=== PATIENT | male | born 1950 | race Caucasian/White ===

== ENCOUNTER 2023-11-06 10:34 | Outpatient (AMB) | payer MEDICARE, SELFPAY ==
--- NOTE | 2023-11-06 10:36 | A.OFFVIS_ITS ---
Intake Vital Signs 11/06/23 10:41 Height 5 ft 11.5 in Weight 136 lb BMI 18.7 BP 138/70 Blood Pressure Location Lt brachial Position Sitting Respiration 14 Pulse 78 Pulse Source Pulse Oximeter Pulse Oximetry (%) 99 Oxygen Delivery Method Room Air Intake Visit Reasons: Knee, Shoulder, Hands Numbness Allergies No Known Allergies Allergy (Verified 11/06/23 10:37) HPI Knee, Shoulder, Hands Numbness HPI Details 73-year-old male who presents today to t he office for an evaluation of knee, shoulder, hands numbness. He has a history of left arm numbness and paresthesia. He has paresthesia along the lateral left chest wall and up to the armpit. He reports wrist pain and has numbness and loss of sensation in his fingers. He woke up one day in 2021 and noticed numbness in his arm, which did not resolve. He also started experiencing chest pain and shoulder pain. He was seen in the ER, underwent a bunch of tests, and was concluded to have neuropathy. He was still working, but his pain kept w orsening. He had had two injections in the past. He has no significant pain or stiffness in his neck region. He is unable to make a fist. He states that he has lost about 50% of the of the functionality of his hands. He has been dropping things constantly. He also has chronic pain in his hips, low back, knees, and shoulders. He states that his pain depends on the day. He reports back and knee pain when standing or walking. He is able to sit down for prolonged periods of time without pain. He reports back and knee pain when standing or walking. He has to take a rest while cleaning his dishes. He reports muscle cramping in his lower extremities that is worse when lifting the leg, walking, or standing. He denies having numbness or paresthesia. He walks a round trip from his home to a grocery store and back. He is using a walker. He uses the grocery store cart as a walker. He has not attended physical therapy for neck or back pain. He has not done a nerve conduction study in the past. He never had any back surgery but had had hip surgery in the past. 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 He has not used gabapentin since 2021. Review of Systems Const All systems reviewed & are unremarkable except as noted in HPI and below Physical Exam Vital Signs: Last Vital Signs Pulse 78 11/06/23 10:41 Resp 14 11/06/23 10:41 BP 138/70 11/06/23 10:41 Pulse Ox 99 11/06/23 10:41 Oxygen Delivery Method Room Air 11/06/23 10:41 BMI result Body Mass Index 18.7 General: Appears afebrile. Alert and oriented. Mood and affect appropriate. Follows and participates in conversation appropriately. Respiratory effort is unlabored. Able to transition from sit to stand unassisted. Ambulates with bilaterally normal heel strike and toe off. Neck ROM is maintained from cervical extension, which is slightly uncomfortable side to side, and lateral bending does not reproduce symptoms other than crunching in the neck. Lumbar extension is severely limited. He is unable to extend his lumbar spine. Results Reviewed Results Reviewed: 06/27/2020: MR - SHOULDER RIGHT Findings: Rotator cuff: There is a full-thickness tear in the supraspinatus, which is retracted medially by up to 2.4 cm. Remaining distal supraspinatus tendon stump is thickened and increased in signal. There is insertional tendinopathy of infraspinatus. The teres minor and subscapularis tendons are intact. There is normal muscle bulk. Glenoid labrum and biceps tendon: There is degeneration in the superior labrum. There is a tear of the inferior and posterior labrum. There is edema in the humeral attachment of the anterior glenohumeral ligament. The biceps tendon is in the groove, though there is thickening and increased signal of the intra-articular portion. AC joint: There is moderate acromioclavicular degenerative change with bony proliferation and subchondral cyst formation. Articular cartilage: Mild chondral thinning is seen superiorly on the humeral head and centrally in the glenoid. Bone: There is mild bone marrow edema in the posterior superior humeral head. Small subchondral cysts are seen anteriorly in the greater tuberosity. Impression: 1. Full-thickness tear of supraspinatus. 2. Insertional tendinopathy of infraspinatus. 3. Tear of the inferior and posterior labrum. Edema adjacent to the humeral attachment of the anterior inferior glenohumeral ligament is seen, which may reflect a capsular ligamentous injury. 4. Tendinopathy of the intra-articular biceps tendon. 5. Moderate acromioclavicular and mild glenohumeral degenerative change. Assessment & Plan Assessment & Plan (1) Cervical radiculopathy: Code(s): M54.12 - Radiculopathy, cervical region (2) Right knee pain: Code(s): M25.561 - Pain in right knee (3) Neurogenic claudication due to lumbar spinal stenosis: Code(s): M48.062 - Spinal stenosis, lumbar region with neurogenic claudication (4) Right shoulder pain: Code(s): M25.511 - Pain in right shoulder (5) Bilateral hand numbness: Code(s): R20.0 - Anesthesia of skin Plan I ordered an MRI scan of the cervical and lumbar spines for further evaluation of cervical radiculopathy symptoms and spinal stenosis of the lumbar region with neurogenic claudication. I ordered a nerve conduction study of the neck and shoulder/arm to evaluate the numbness and paresthesia in his upper extremities and to rule out carpal tunnel syndrome. I also ordered an x-ray of the knee to assess the extent of the knee osteoarthritis given the history of arthritis in other parts of the body and the increasing right knee pain. The patient is unable to participate in physical therapy. The patient will follow up one week after completing all his imaging and tests to review them with me. Scribed for Dr. Thompson by Jesus Yoo, forensic medical examiner, on 11/06/2023. I, Dr. Thompson, have personally reviewed and agree with the information entered by the scribe. Orders: Orders MR cervical spine wo con 11/06/23 M54.12 - Radiculopathy, cervical region XR knee standing BI 11/06/23 M25.561 - Pain in right knee MR lumbar spine wo con 11/06/23 M48.062 - Spinal stenosis, lumbar region with neurogenic claudication NE electromyogram (EMG) 11/06/23 R20.0 - Anesthesia of skin, M54.12 - Radiculopathy, cervical region Coding Level of Care Code New Pt Level 4 (35712) Diagnoses Cervical radiculopathy M54.12 Right knee pain M25.561 Neurogenic claudication due to lumbar spinal stenosis M48.062 Right shoulder pain M25.511 Bilateral hand numbness R20.0
[2023-11-06 10:41] VITALS: BP 138/70; PULSE 78; RESP 14; O2SAT 99; BMI 18.7
== END 2023-11-06 11:23 | disposition home or self-care (01) ==
PROVIDERS: PCP Physician Assistant Medical; Visit Provider Internal Medicine
DX: M54.12 Radiculopathy, cervical region (principal); M25.561 Pain in right knee; M48.062 Spinal stenosis, lumbar region with neurogenic claudication; M25.511 Pain in right shoulder; R20.0 Anesthesia of skin
CPT/HCPCS: 99204

== ENCOUNTER → 2023-11-06 10:34 | Outpatient (BNVA) | payer MEDICARE, SELFPAY | PROVIDERS: PCP Physician Assistant Medical; Visit Provider Internal Medicine | DX: M54.12 Radiculopathy, cervical region (principal); M25.561 Pain in right knee; M48.062 Spinal stenosis, lumbar region with neurogenic claudication; M25.511 Pain in right shoulder; R20.0 Anesthesia of skin | CPT/HCPCS: 99202 ==

== ENCOUNTER 2023-11-20 11:08 | Outpatient (REF) | payer MEDICARE, SELFPAY ==
--- NOTE | 2023-11-20 11:12 | EMG_ITS ---
Chief complaint: Started with left arm numbness, now affecting also right arm. Complaining of other musculoskeletal pain including low back pain and knee pain. Reason for referral: Evaluate for Carpal Tunnel Syndrome versus radiculopathy Referred by: Dr. Thompson Procedure done: Bilateral upper extremities NCS/EMG Precautions and/or limitations: None The limb temperature was monitored continuously and remained between 32-36 degrees C during the performance of the NCS. Ulnar motor NCS was performed with moderate elbow flexion between 70-90 degrees, with across-elbow distance of 10 cm. Nerve Conduction Studies Anti Sensory Summary Table ?Stim Site NR Onset (ms) Norm Onset (ms) Peak (ms) Norm Peak (ms) O-P Amp (?V) Norm O-P Amp Site1 Site2 Delta-0 (ms) Dist (cm) Jean (m/s) Norm Jean (m/s) Left Median Anti Sensory (2nd Digit) Wrist ? 3.8 5.0 <3.6 5.8 >10 Wrist 2nd Digit 3.8 14.0 37 Right Median Anti Sensory (2nd Digit) Wrist ? 4.0 5.0 <3.6 4.2 >10 Wrist 2nd Digit 4.0 14.0 35 Right Radial Anti Sensory (Thumb) Forearm ? 1.3 2.4 <3.1 14.3 Forearm Thumb 1.3 0.0 Left Ulnar Anti Sensory (5th Digit) Wrist ? 2.9 3.7 <3.7 13.5 >15.0 Wrist 5th Digit 2.9 14.0 48 Right Ulnar Anti Sensory (5th Digit) Wrist ? 2.8 3.8 <3.7 12.4 >15.0 Wrist 5th Digit 2.8 14.0 50 Motor Summary Table ?Stim Site NR Onset (ms) Norm Onset (ms) O-P Amp (mV) Norm O-P Amp iAmp (mV) Amp (1st) (%) Site1 Site2 Delta-0 (ms) Dist (cm) Jean (m/s) Norm Jean (m/s) Left Median Motor (Abd Poll Brev) Wrist ? 4.7 <3.9 5.8 >4.5 6.8 100.0 Elbow Wrist 4.4 22.0 50 >45 Elbow ? 9.1 5.7 6.8 98.3 Right Median Motor (Abd Poll Brev) Wrist ? 4.8 <3.9 5.1 >4.5 6.1 100.0 Elbow Wrist 5.4 22.0 41 >45 Elbow ? 10.2 3.6 4.2 70.6 Left Ulnar Motor (Abd Dig Minimi) Wrist ? 3.0 <3.0 4.9 >5 5.5 100.0 B Elbow Wrist 3.9 18.5 47 >45 B Elbow ? 6.9 5.1 5.8 104.1 A Elbow B Elbow 1.7 10.0 59 >45 A Elbow ? 8.6 4.8 5.6 98.0 Right Ulnar Motor (Abd Dig Minimi) Wrist ? 3.2 <3.0 7.0 >5 10.1 100.0 B Elbow Wrist 3.5 20.0 57 >45 B Elbow ? 6.7 5.7 7.4 81.4 A Elbow B Elbow 1.1 10.0 91 >45 A Elbow ? 7.8 5.8 7.8 82.9 Right UlnarH Motor (FDI) Wrist ? 4.4 <3.0 3.9 >5 6.1 100.0 B Elbow Wrist 4.3 19.0 44 >45 B Elbow ? 8.7 2.6 4.1 66.7 A Elbow B Elbow 2.0 10.0 50 >45 A Elbow ? 10.7 1.7 2.8 43.6 EMG ?Side Muscle Nerve Root Ins Act Fibs Psw Amp Dur Poly Recrt Int Pat Comment Right 1stDorInt Ulnar C8-T1 Nml Nml Nml Nml Nml 0 Nml Complete Right FlexCarRad Median C6-7 Nml Nml Nml Nml Nml 0 Nml Complete Right Biceps Musculocut C5-6 Nml Nml Nml Nml Nml 0 Nml Complete Right Triceps Radial C6-7-8 Nml Nml Nml Nml Nml 0 Nml Complete Right Deltoid Axillary C5-6 Nml Nml Nml Nml Nml 0 Nml Complete Left 1stDorInt Ulnar C8-T1 Nml Nml Nml Nml Nml 0 Nml Complete Left FlexCarRad Median C6-7 Nml Nml Nml Nml Nml 0 Nml Complete Left Biceps Musculocut C5-6 Nml Nml Nml Nml Nml 0 Nml Complete Left Triceps Radial C6-7-8 Nml Nml Nml Nml Nml 0 Nml Complete Left Deltoid Axillary C5-6 Nml Nml Nml Nml Nml 0 Nml Complete Paraspinal EMG ?Side Muscle Nerve Root Ins Act Fibs Psw Comment Right Cervical Upper Rami Nml Nml Nml Right Cervical Mid Rami Nml Nml Nml Right Cervical Lower Rami Nml Nml Nml Left Cervical Upper Rami Nml Nml Nml Left Cervical Mid Rami Nml Nml Nml Left Cervical Lower Rami Nml Nml Nml FINDINGS: Right median motor nerve showed prolonged distal latency, normal amplitude and slow conduction velocity. Right ulnar motor nerve, recording at ADM, showed prolonged distal latency, normal amplitude and normal conduction velocity. Right ulnar motor nerve, recording at FDI, showed showed prolonged distal latency, normal amplitude and slow distal conduction velocity. Left median motor nerve showed prolonged distal latency, normal amplitude and normal conduction velocity. Left ulnar motor nerve, recording at ADM, showed normal distal latency, small amplitude and normal conduction velocity. Bilateral median sensory nerves showed prolonged peak latency and small amplitude. Right ulnar sensory nerve showed prolonged peak latency and small amplitude. Right ulnar sensory nerve showed normal peak latency but small amplitude. Right radial sensory nerve within normal. Concentric needle EMG was performed in selected muscles of the bilateral upper extremities and cervical paraspinals. Study did not reveal signs of electric abnormalities as shown in the table below. IMPRESSION: 1. This is an abnormal study. 2. There is electrodiagnostic evidence for bilateral moderate-severe median neuropathy at the wrist, consistent with carpal tunnel syndrome. 3. 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 4. There is no electrodiagnostic evidence for brachial plexopathy or cervical radiculopathy. Thank you for your kind referral. Nataliya Beverly MD, SHANICE Board Certified, [place] [employer] and [employer] (ABPMR) Board Certified, [place] Board [employer] Electro[employer]ostic [employer] (ABEM) CODIN [id number] x 2 MTDD
== END 2023-11-20 11:09 | disposition home or self-care (01) ==
LOC: HO.NEURO 11:08
PROVIDERS: Visit Provider Internal Medicine
DX: R20.0 Anesthesia of skin (principal); M54.12 Radiculopathy, cervical region
CPT/HCPCS: 95886; 95911

== ENCOUNTER → 2023-11-20 11:12 | Outpatient (BNV) | payer MEDICARE, SELFPAY | PROVIDERS: Visit Provider Physical Medicine & Rehabilitation | DX: G56.03 Carpal tunnel syndrome, bilateral upper limbs (principal); G56.13 Other lesions of median nerve, bilateral upper limbs; G56.23 Lesion of ulnar nerve, bilateral upper limbs | CPT/HCPCS: 95886; 95911 ==

== ENCOUNTER 2023-12-07 15:14 | Outpatient (REF) | payer MEDICARE, SELFPAY ==
--- NOTE | ~2023-12-07 | MR_ITS ---
MR CERVICAL SPINE WITHOUT CONTRAST MR LUMBAR SPINE SPINE WITHOUT CONTRAST CLINICAL INFORMATION: Cervical region radiculopathy. Lumbar region spinal stenosis with neurogenic claudication. COMPARISON: None. TECHNIQUE: Multiplanar multisequence MR imaging of the cervical spine and lumbar obtained without IV contrast. FINDINGS: CERVICAL SPINE MRI: There is degenerative anterior subluxation of C3 on C4. Moderate to severe disc volume loss at C4-C5, C5-C6, and C6-C7. There are degenerative endplate signal changes at these levels as well. There are no acute fractures. The craniocervical junction is unremarkable. Cervical arterial flow voids are maintained. Multilevel endplate osteophytes. There are no significant extraspinal soft tissue findings. There are no cord signal changes. The partially imaged intracranial compartment is unremarkable. C2-C3: Shallow disc protrusion mildly narrows the central canal. Uncovertebral joint spurring and advanced facet arthropathy result in mild bilateral foraminal encroachment. C3-C4: Degenerative anterior subluxation. Advanced uncovertebral joint hypertrophy and hypertrophic facet arthropathy result in moderate right and mild to moderate left foraminal stenosis. A shallow disc protrusion mildly narrows the central canal. C4-C5: Disc osteophyte without central canal stenosis. Advanced uncovertebral joint hypertrophy and hypertrophic facet arthropathy result in moderate to severe left and mild to moderate right foraminal stenosis. C5-C6: Disc osteophyte and ligamentum flavum thickening mildly narrow the central canal. Advanced uncovertebral joint hypertrophy and hypertrophic facet arthropathy result in severe bilateral foraminal stenosis. C6-C7: Disc osteophyte mildly narrows the central canal. Advanced uncovertebral joint hypertrophy and hypertrophic facet arthropathy result in severe bilateral foraminal stenosis. C7-T1: Disc contour is normal. No central canal stenosis and no foraminal stenosis. LUMBAR SPINE MRI: There are 5 nonrib-bearing lumbar-type vertebral bodies. There is grade 1 retrolisthesis of L1 on L2, L2 on L3, L3 on L4, and L4 on L5. The vertebral body heights are maintained. There are multilevel endplate osteophytes. There are Modic type I endplate signal changes at L1-L2, L2-L3, and L3-L4. There is no additional bone marrow edema. There are no acute fractures. Moderate disc volume loss at L4-L5 and L5-S1. Mild disc volume loss at the remaining lumbar levels. Multilevel endplate osteophytes. There is a rounded focus of decreased marrow signal within the L1 vertebral body measuring 1.8 cm and a smaller rounded focus of low T1 signal within the L3 vertebral body measuring 0.9 cm. Whole-body bone scan follow-up is advised to exclude metastatic disease or other malignant marrow pathology. Conus terminates at the T12-L1 level. L1-L2: Grade 1 retrolisthesis. There is a diffuse annular disc bulge and there is mild bilateral facet arthropathy. No central canal stenosis. There is mild foraminal encroachment bilaterally. L2-L3: Grade 1 retrolisthesis. Diffuse annular disc bulge and moderate bilateral facet arthropathy and ligamentum flavum thickening. Mild central canal stenosis and mild bilateral foraminal encroachment. L3-L4: Grade 1 retrolisthesis. Diffuse annular disc bulge and severe bilateral facet arthropathy and ligamentum flavum thickening. Findings in concert result in left subarticular zone stenosis with mass effect on the traversing left L4 nerve root as well as mild bilateral foraminal encroachment. L4-L5: Diffuse annular disc bulge and severe bilateral facet arthropathy and ligamentum flavum thickening. Findings in concert result in mild central canal stenosis, right greater than left subarticular zone stenosis with compression of the traversing right greater than left L5 nerve roots, and moderate to severe right foraminal stenosis with compression of the exiting right L4 nerve root. L5-S1: Diffuse annular disc bulge and severe bilateral facet arthropathy and ligamentum flavum thickening. Central canal remains patent. Congenitally conjoined left L5-S1 nerve root. Mild right-sided foraminal encroachment. MR/MR cervical spine wo con IMPRESSION: - Multilevel cervical spondylosis. Advanced spondylitic changes result in severe bilateral foraminal stenosis at C5-C6 and C6-C7 as well as moderate to severe left and mild to moderate right C4-C5 as well as moderate right and mild to moderate left C3-C4 foraminal stenosis. There is no severe central canal stenosis within the cervical spine. - There is a rounded focus of decreased marrow signal within the L1 vertebral body measuring 1.8 cm and a smaller rounded focus of low T1 signal within the L3 vertebral body measuring 0.9 cm. Whole-body bone scan follow-up is advised to exclude metastatic disease or other malignant marrow pathology. - At L3-L4, spondylitic changes result in left subarticular zone stenosis with mass effect on the traversing left L4 nerve root. - At L4-L5, multifactorial degenerative changes result in mild central canal stenosis, right greater than left subarticular zone stenosis with compression of the traversing right greater than left L5 nerve roots, and moderate to severe right foraminal stenosis with compression of the exiting right L4 nerve root.
== END 2023-12-07 15:15 | disposition home or self-care (01) ==
LOC: HO.MRI 15:14
PROVIDERS: PCP Physician Assistant Medical; Visit Provider Internal Medicine
DX: M54.12 Radiculopathy, cervical region (principal); M48.062 Spinal stenosis, lumbar region with neurogenic claudication
CPT/HCPCS: 72141; 72148

== ENCOUNTER 2024-01-13 09:14 | Outpatient (AMB) | payer MEDICARE, SELFPAY ==
--- NOTE | 2024-01-13 09:16 | MHC.OFFVIS ---
Vital Signs 01/13/24 09:17 Height 5 ft 11.5 in Weight 134 lb BMI 18.4 BP 121/64 Blood Pressure Location Lt brachial Position Sitting Respiration 14 Pulse 83 Pulse Source Pulse Oximeter Pulse Oximetry (%) 96 Oxygen Delivery Method Room Air Intake Visit Reasons: results Allergies No Known Allergies Allergy (Verified 01/13/24 09:18) Medication List - Last Reconciled 01/13/24 by Brittnee Kellogg LPN acetaminophen ER (Tylenol Arthritis Pain) 650 mg PO Q12H buspirone 5 mg PO TID hydrocodone-acetaminophen 5-325 mg 1 tab PO QID PRN ibuprofen 800 mg PO TID HPI HPI results: Details: 73-year-old male who presents today to the office for results He states he was recently admitted to the emergency room and underwent x-rays, which showed some suspicious finding. He has scheduled for a CT scan of the lungs later today. He has long history of left arm numbness and paresthesia. He thinks his aches and pains have gotten worse since the last visit especially in the arms, knees, and muscles in the thighs. He still continues to have numbness in the fingers, which give him a hard time holding on anything. He first noticed the numbness in his hands way back in 2021, where he woke up with numbness and does not resolve for a long time. He reports pain exacerbate when he cuts his nails. He also reports lower back pain that gets worse with walking. He stopped going to convenience store as he could not walk far. He had received 2 injections to help with pain in the past. He admits to getting cramps in the legs especially at night time. He previously underwent right hip surgery, but denies any back surgery. Review of Systems Const All systems reviewed & are unremarkable except as noted in HPI and below Physical Exam Vital Signs: Last Vital Signs Pulse 83 01/13/24 09:17 Resp 14 01/13/24 09:17 BP 121/64 01/13/24 09:17 Pulse Ox 96 01/13/24 09:17 Oxygen Delivery Method Room Air 01/13/24 09:17 BMI result Body Mass Index 18.4 General: Appears afebrile. Alert and oriented. Mood and affect appropriate. Follows and participates in conversation appropriately. Respiratory effort is unlabored. Able to transition from sit to stand unassisted. Results Reviewed Results Reviewed: EMG study showing moderate to severe median nerve neuropathy across the carpal tunnel on both sides. No evidence of cervical radiculopathy. 12/07/23: MR CERVICAL SPINE WITHOUT CONTRAST MR LUMBAR SPINE SPINE WITHOUT CONTRAST FINDINGS: CERVICAL SPINE MRI: There is degenerative anterior subluxation of C3 on C4. Moderate to severe disc volume loss at C4-C5, C5-C6, and C6-C7. There are degenerative endplate signal changes at these levels as well. There are no acute fractures. The craniocervical junction is unremarkable. Cervical arterial flow voids are maintained. Multilevel endplate osteophytes. There are no significant extraspinal soft tissue findings. There are no cord signal changes. The partially imaged intracranial compartment is unremarkable. C2-C3: Shallow disc protrusion mildly narrows the central canal. Uncovertebral joint spurring and advanced facet arthropathy result in mild bilateral foraminal encroachment. C3-C4: Degenerative anterior subluxation. Advanced uncovertebral joint hypertrophy and hypertrophic facet arthropathy result in moderate right and mild to moderate left foraminal stenosis. A shallow disc protrusion mildly narrows the central canal. C4-C5: Disc osteophyte without central canal stenosis. Advanced uncovertebral joint hypertrophy and hypertrophic facet arthropathy result in moderate to severe left and mild to moderate right foraminal stenosis. C5-C6: Disc osteophyte and ligamentum flavum thickening mildly narrow the central canal. Advanced uncovertebral joint hypertrophy and hypertrophic facet arthropathy result in severe bilateral foraminal stenosis. C6-C7: Disc osteophyte mildly narrows the central canal. Advanced uncovertebral joint hypertrophy and hypertrophic facet arthropathy result in severe bilateral foraminal stenosis. C7-T1: Disc contour is normal. No central canal stenosis and no foraminal stenosis. LUMBAR SPINE MRI: There are 5 nonrib-bearing lumbar-type vertebral bodies. There is grade 1 retrolisthesis of L1 on L2, L2 on L3, L3 on L4, and L4 on L5. The vertebral body heights are maintained. There are multilevel endplate osteophytes. There are Modic type I endplate signal changes at L1-L2, L2-L3, and L3-L4. There is no additional bone marrow edema. There are no acute fractures. Moderate disc volume loss at L4-L5 and L5-S1. Mild disc volume loss at the remaining lumbar levels. Multilevel endplate osteophytes. There is a rounded focus of decreased marrow signal within the L1 vertebral body measuring 1.8 cm and a smaller rounded focus of low T1 signal within the L3 vertebral body measuring 0.9 cm. Whole-body bone scan follow-up is advised to exclude metastatic disease or other malignant marrow pathology. Conus terminates at the T12-L1 level. L1-L2: Grade 1 retrolisthesis. There is a diffuse annular disc bulge and there is mild bilateral facet arthropathy. No central canal stenosis. There is mild foraminal encroachment bilaterally. L2-L3: Grade 1 retrolisthesis. Diffuse annular disc bulge and moderate bilateral facet arthropathy and ligamentum flavum thickening. Mild central canal stenosis and mild bilateral foraminal encroachment. L3-L4: Grade 1 retrolisthesis. Diffuse annular disc bulge and severe bilateral facet arthropathy and ligamentum flavum thickening. Findings in concert result in left subarticular zone stenosis with mass effect on the traversing left L4 nerve root as well as mild bilateral foraminal encroachment. L4-L5: Diffuse annular disc bulge and severe bilateral facet arthropathy and ligamentum flavum thickening. Findings in concert result in mild central canal stenosis, right greater than left subarticular zone stenosis with compression of the traversing right greater than left L5 nerve roots, and moderate to severe right foraminal stenosis with compression of the exiting right L4 nerve root. L5-S1: Diffuse annular disc bulge and severe bilateral facet arthropathy and ligamentum flavum thickening. Central canal remains patent. Congenitally conjoined left L5-S1 nerve root. Mild right-sided foraminal encroachment. IMPRESSION: - Multilevel cervical spondylosis. Advanced spondylitic changes result in severe bilateral foraminal stenosis at C5-C6 and C6-C7 as well as moderate to severe left and mild to moderate right C4-C5 as well as moderate right and mild to moderate left C3-C4 foraminal stenosis. There is no severe central canal stenosis within the cervical spine. - There is a rounded focus of decreased marrow signal within the L1 vertebral body measuring 1.8 cm and a smaller rounded focus of low T1 signal within the L3 vertebral body measuring 0.9 cm. Whole-body bone scan follow-up is advised to exclude metastatic disease or other malignant marrow pathology. - At L3-L4, spondylitic changes result in left subarticular zone stenosis with mass effect on the traversing left L4 nerve root. - At L4-L5, multifactorial degenerative changes result in mild central canal stenosis, right greater than left subarticular zone stenosis with compression of the traversing right greater than left L5 nerve roots, and moderate to severe right foraminal stenosis with compression of the exiting right L4 nerve root. 06/27/2020: MR - SHOULDER RIGHT Findings: Rotator cuff: There is a full-thickness tear in the supraspinatus, which is retracted medially by up to 2.4 cm. Remaining distal supraspinatus tendon stump is thickened and increased in signal. There is insertional tendinopathy of infraspinatus. The teres minor and subscapularis tendons are intact. There is normal muscle bulk. Glenoid labrum and biceps tendon: There is degeneration in the superior labrum. There is a tear of the inferior and posterior labrum. There is edema in the humeral attachment of the anterior glenohumeral ligament. The biceps tendon is in the groove, though there is thickening and increased signal of the intra-articular portion. AC joint: There is moderate acromioclavicular degenerative change with bony proliferation and subchondral cyst formation. Articular cartilage: Mild chondral thinning is seen superiorly on the humeral head and centrally in the glenoid. Bone: There is mild bone marrow edema in the posterior superior humeral head. Small subchondral cysts are seen anteriorly in the greater tuberosity. Impression: 1. Full-thickness tear of supraspinatus. 2. Insertional tendinopathy of infraspinatus. 3. Tear of the inferior and posterior labrum. Edema adjacent to the humeral attachment of the anterior inferior glenohumeral ligament is seen, which may reflect a capsular ligamentous injury. 4. Tendinopathy of the intra-articular biceps tendon. 5. Moderate acromioclavicular and mild glenohumeral degenerative change. Assessment & Plan Assessment & Plan (1) Bilateral hand numbness: Code(s): R20.0 - Anesthesia of skin Category: Medical (2) Right knee pain: Code(s): M25.561 - Pain in right knee Category: Medical (3) Cervical radiculopathy: Code(s): M54.12 - Radiculopathy, cervical region Category: Medical (4) Neurogenic claudication due to lumbar spinal stenosis: Code(s): M48.062 - Spinal stenosis, lumbar region with neurogenic claudication Category: Medical (5) Vertebrogenic low back pain: Code(s): M54.51 - Vertebrogenic low back pain Category: Medical (6) Lumbar spondylosis: Code(s): M47.816 - Spondylosis without myelopathy or radiculopathy, lumbar region Category: Medical Plan 73-year-old male with multiple pain generators presenting for follow-up after cervical and lumbar spine MRIs as well as EMG/NCS study of the upper extremities. For his carpal tunnel syndrome, I placed a referral to orthopedic hand surgery for consideration of injection/relief. Informed the patient that he will receive a phone call to set up the appointment. His cervical symptoms are relatively well-controlled at this time, so we will defer any management for now. His main issue at this time is low back pain that is worse with walking, worse with range of motion and with any kind of activity. He has evidence of vertebral endplate inflammation and changes. He also has significant multifidus atrophy and facet hypertrophy and arthritis. He also has ligamentum flavum hypertrophy especially at L4-5. Overall his picture appears to be secondary to a combination of spinal stenosis with neurogenic claudication, lumbar spondylosis, multifidus atrophy and degeneration and vertebrogenic low back pain. The start of I will schedule him for a interlaminar epidural steroid injection at L4-5. I also discussed temporary nerve stimulation of the lumbar medial branches, minimally invasive lumbar decompression and basivertebral nerve ablation for the aforementioned conditions. I provided him with prescriptions for all these problems and explained that it may take time to implement this entire plan over the course of next several months before he starts to feel meaningful difference. The patient requested that in the meantime I provide him with prescriptions for his Vicodin that he is currently receiving from his primary care provider. I informed him that I am not enrolling patients in our chronic opiate program at this time. He is currently on a relatively low dose that he can continue receiving from his primary care provider over the next several months while we take steps to implement the interventional measures that we discussed today. I also ordered a whole-body nuclear medicine bone scan based on marrow findings on his lumbar spine MRI. I also ordered x-rays of the bilateral lungs to assess extent of osteoarthritis in his knees given significant right knee pain. Justification for interventional therapy: Patient with average pain >9/10 Patient has exhausted conservative therapy including oral and topical medications More than 40 minutes were spent in reviewing results, counseling and documentation of this visit. Scribed for Dr. Thompson by Kellen De La Rosa, medical laboratory specialist, on 01/13/2024. I, Dr. Thompson, have personally reviewed and agree with the information entered by the scribe. Orders: Orders NM bone scan whole body Today R93.7 - Abnormal findings on diagnostic imaging of other parts of musculoskeletal system XR knee standing BI Today M25.561 - Pain in right knee Referrals Hand Surgery Referral R20.0 - Anesthesia of skin Coding Level of Care Code Est Pt Level 5 (89833) Diagnoses Bilateral hand numbness R20.0 Right knee pain M25.561 Cervical radiculopathy M54.12 Neurogenic claudication due to lumbar spinal stenosis M48.062 Vertebrogenic low back pain M54.51 Lumbar spondylosis M47.816
[2024-01-13 09:17] VITALS: BP 121/64; PULSE 83; RESP 14; O2SAT 96; BMI 18.4
== END 2024-01-13 09:59 | disposition home or self-care (01) ==
PROVIDERS: PCP Physician Assistant Medical; Visit Provider Internal Medicine
DX: R20.0 Anesthesia of skin (principal); M25.561 Pain in right knee; M54.12 Radiculopathy, cervical region; M48.062 Spinal stenosis, lumbar region with neurogenic claudication; M54.51 Vertebrogenic low back pain; M47.816 Spondylosis without myelopathy or radiculopathy, lumbar region
CPT/HCPCS: 99215

== ENCOUNTER → 2024-01-13 09:14 | Outpatient (BNVA) | payer MEDICARE, SELFPAY | PROVIDERS: Visit Provider Internal Medicine | DX: R20.0 Anesthesia of skin (principal); M25.561 Pain in right knee; M54.12 Radiculopathy, cervical region; M48.062 Spinal stenosis, lumbar region with neurogenic claudication; M54.51 Vertebrogenic low back pain; M47.816 Spondylosis without myelopathy or radiculopathy, lumbar region | CPT/HCPCS: 99212 ==

== ENCOUNTER 2024-02-04 06:12 | Outpatient (REF) | payer MEDICARE, SELFPAY ==
--- NOTE | ~2024-02-04 | FL_ITS ---
EXAMINATION: XR FLUOROSCOPY WITH IMAGES CLINICAL INFORMATION: Vertebrogenic low back pain. COMPARISON: None available. TECHNIQUE: Fluoroscopy Supervised By: Dr. Thompson. Fluoroscopy Time: 0.1 min. Cumulative Dose: 1.36 mGy. DAP: 0.154 Gycm2. Images: 2. FINDINGS: Intraoperative fluoroscopy and spot films were performed during a procedure in the OR. An epidural needle is seen in the lumbar spine, at the level of the aortic bifurcation. Precise levels can not be ascertained secondary to marked coning of the images with lack of appropriate landmarks. Contrast media is seen in the epidural space. Please correlate with Dr. Thompson' report for complete details. FL/FL guidance in treatment room IMPRESSION: Intraoperative fluoroscopy and spot films were obtained. Please see Dr. Thompson' report for complete details.
== END 2024-02-04 06:13 | disposition home or self-care (01) ==
LOC: CF 06:12
PROVIDERS: Visit Provider Internal Medicine
DX: M54.51 Vertebrogenic low back pain (principal); M54.16 Radiculopathy, lumbar region
CPT/HCPCS: 62323; J3301; Q9967

== ENCOUNTER 2024-02-04 11:04 | Outpatient (AMB) | payer MEDICARE, SELFPAY ==
--- NOTE | 2024-02-04 11:13 | MHC.OFFVIS ---
Vital Signs 02/04/24 11:39 02/04/24 11:40 BP 107/68 116/69 Blood Pressure Location Rt brachial Rt brachial Position Sitting Sitting Respiration 14 14 Pulse 79 82 Pulse Source Pulse Oximeter Pulse Oximeter Pulse Oximetry (%) 97 97 Oxygen Delivery Method Room Air Room Air Intake Visit Reasons: L4-L5 midline interlaminar LOREE Allergies No Known Allergies Allergy (Verified 01/13/24 09:18) HPI HPI L4-L5 midline interlaminar LOREE: Details: Patient presents for scheduled procedure. Denies any recent cough, cold, infection, fever or other significant changes in medical history since last office visit. Physical Exam Vital Signs: Last Vital Signs Pulse 82 02/04/24 11:40 Resp 14 02/04/24 11:40 BP 116/69 02/04/24 11:40 Pulse Ox 97 02/04/24 11:40 Oxygen Delivery Method Room Air 02/04/24 11:40 Office Procedures Joint Injection/Drain Joint Injection/Drain Details: Interlaminar epidural steroid injection, L4/5, Left parasaggital After obtaining written consent, pre-procedure blood pressure and heart rate were stable and recorded in the nursing record. The patient was placed in the prone position. The [anatomic] area was widely prepped with chloraprep and draped in sterile fashion. Fluoroscopic guidance was used to identify the desired interlaminar space and for needle placement. Subcutaneous 0.5% lidocaine was used to anesthetize the skin overlying the target. A 20-gauge Ross needle was advanced to the epidural space using loss of resistance to contrast technique under fluoroscopic AP and contralateral oblique views. There was no evidence of heme or CSF and no paresthesias were elicited with needle placement. Confirmation of epidural needle placement was performed with 1cc of omnipaque 180. Next 3 ml 0.5% lidocaine mixed with 80 mg triamcinilone was administered epidurally with no pain elicited on injection. The needle tract tubing was then cleared with 1 ml of 0.5% lidocaine. The needle was removed, skin cleansed and a sterile bandage was applied. The patient tolerated the procedure well and no complications were encountered. Following the procedure the patient's vital signs were stable. The patient was discharged home in good condition with post-procedural instructions. Time Out: Immediately prior to the procedure, the following was verbally confirmed that there is a signed consent form and that the correct patient, planned procedure, site and side are consistent with documentation and that necessary equipment and/or blood products are available prior to the start of the case. Complications: none EBL: <2 cc Coding 07996 - Caudal/Lumbar Epidural/Interlaminar with fluoroscopy Procedure code (CPT) selection complete Assessment & Plan Assessment & Plan (1) Lumbar radicular pain: Code(s): M54.16 - Radiculopathy, lumbar region Category: Medical Plan Patient is status post left parasagittal interlaminar L4-5 LOREE. Patient tolerated procedure well and was discharged home in stable condition with discharge instructions. All questions were answered. We will follow-up via telephone or in clinic to assess response to therapy. A follow-up appointment was made during today's visit. Coding Level of Care Code Procedure Only Diagnoses Lumbar radicular pain M54.16 CPT Codes Coding - Joint 11: 12792 - Caudal/Lumbar Epidural/Interlaminar with fluoroscopy ([id number])
[2024-02-04 11:39] VITALS: BP 107/68; PULSE 79; RESP 14; O2SAT 97
[2024-02-04 11:40] VITALS: BP 116/69; PULSE 82; RESP 14; O2SAT 97
== END 2024-02-04 11:41 | disposition home or self-care (01) ==
LOC: HO.PMCPRC 11:04
PROVIDERS: PCP Physician Assistant Medical; Visit Provider Internal Medicine
DX: M54.16 Radiculopathy, lumbar region (principal)
CPT/HCPCS: 62323

== ENCOUNTER 2024-02-24 10:11 | Outpatient (AMB) | payer MEDICARE, SELFPAY ==
--- NOTE | 2024-02-24 10:14 | MHC.OFFVIS ---
Vital Signs 02/24/24 10:15 Height 5 ft 11.5 in Weight 134 lb BMI 18.4 BP 148/78 H Blood Pressure Location Lt brachial Position Sitting Respiration 16 Pulse 85 Pulse Source Pulse Oximeter Pulse Oximetry (%) 97 Oxygen Delivery Method Room Air Intake Visit Reasons: s/p L4-L5 interlaminar LOREE Allergies No Known Allergies Allergy (Verified 02/24/24 10:16) Medication List - Last Reconciled 02/24/24 by Brittnee Kellogg LPN acetaminophen ER (Tylenol Arthritis Pain) 650 mg PO Q12H duloxetine 20 mg PO DAILY hydrocodone-acetaminophen 5-325 mg 1 tab PO QID PRN ibuprofen 800 mg PO TID HPI HPI s/p L4-L5 interlaminar LOREE: Details: 73-year-old male who presents to the office for status post L4-L5 interlaminar LOREE The patient reports 90% relief. Following the procedure, he is able to stand and walk better. He reports the pain shooting sensation has resolved. He continues to have some leg cramps at night, for which she was recently started on duloxetine 20 mg daily. He has previously taken gabapentin for low back pain, and made him very drowsy so this was stopped. He is not interested in restarting gabapentin at this time due to excessive drowsiness related with that medication. Past Procedures: 02/04/24: Interlaminar epidural steroid injection, L4-L5, left parasagittal: 90% relief Review of Systems Const All systems reviewed & are unremarkable except as noted in HPI and below Physical Exam Vital Signs: Last Vital Signs Pulse 85 02/24/24 10:15 Resp 16 02/24/24 10:15 BP 148/78 H 02/24/24 10:15 Pulse Ox 97 02/24/24 10:15 Oxygen Delivery Method Room Air 02/24/24 10:15 BMI result Body Mass Index 18.4 General: Appears afebrile. Alert and oriented. Mood and affect appropriate. Follows and participates in conversation appropriately. Respiratory effort is unlabored. Able to transition from sit to stand unassisted. Results Reviewed Results Reviewed: No imaging is available for review Assessment & Plan Assessment & Plan (1) Lumbar radicular pain: Code(s): M54.16 - Radiculopathy, lumbar region Category: Medical (2) Vertebrogenic low back pain: Code(s): M54.51 - Vertebrogenic low back pain Category: Medical Plan Agree with continuing trial of duloxetine for neuropathic pain symptoms. Continue acetaminophen ER as needed. Patient will call to let us know when his symptoms return and we can repeat injections as needed based on his symptomatology at the time. Scribed for Dr. Thompson by Kellen De La Rosa, medical office professional instructor, on 02/24/2024. I, Dr. Thompson, have personally reviewed and agree with the information entered by the scribe. Coding Level of Care Code Est Pt Level 3 (43510) Diagnoses Lumbar radicular pain M54.16 Vertebrogenic low back pain M54.51
[2024-02-24 10:15] VITALS: BP 148/78; PULSE 85; RESP 16; O2SAT 97; BMI 18.4
== END 2024-02-24 10:59 | disposition home or self-care (01) ==
PROVIDERS: PCP Physician Assistant Medical; Visit Provider Internal Medicine
DX: M54.16 Radiculopathy, lumbar region (principal); M54.51 Vertebrogenic low back pain
CPT/HCPCS: 99213

== ENCOUNTER → 2024-02-24 10:11 | Outpatient (BNVA) | payer MEDICARE, SELFPAY | PROVIDERS: Visit Provider Internal Medicine | DX: M54.16 Radiculopathy, lumbar region (principal); M54.51 Vertebrogenic low back pain | CPT/HCPCS: 99212 ==

== ENCOUNTER 2024-08-17 10:38 | Outpatient (AMB) | payer MEDICARE, SELFPAY ==
--- NOTE | 2024-08-17 10:39 | A.OFFVIS_ITS ---
Vital Signs 08/17/24 10:41 Height 5 ft 11.5 in Weight 127 lb BMI 17.5 BP 152/71 H Blood Pressure Location Lt brachial Position Sitting Respiration 16 Pulse 100 Pulse Source Pulse Oximeter Pulse Oximetry (%) 96 Oxygen Delivery Method Room Air Intake Visit Reasons: Right shoulder pain / Right Knee pain Allergies No Known Allergies Allergy (Verified 08/17/24 10:41) Medication List - Last Reconciled 08/17/24 by Brittnee Kellogg LPN duloxetine 80 mg PO DAILY hydrocodone-acetaminophen 5-325 mg 1 tab PO QID PRN ibuprofen 800 mg PO TID HPI HPI Right shoulder pain / Right Knee pain: Details: 74-year-old male with a history of lumbar spinal stenosis status post epidural steroid injection to the lower back presenting for follow-up. He reports excelle nt ongoing relief for his low back pain which appears to be well-controlled at this time. His main complaint today is right knee and right shoulder pain. He has previous history of right rotator cuff tear in the right shoulder as well as right knee osteoarthritis. He would like these to be injected if possible. Physical Exam Vital Signs: Last Vital Signs Pulse 100 08/17/24 10:41 Resp 16 08/17/24 10:41 BP 152/71 H 08/17/24 10:41 Pulse Ox 96 08/17/24 10:41 Oxygen Delivery Method Room Air 08/17/24 10:41 BMI result Body Mass Index 17.5 Office Procedures AMB Joint Injection/Aspiration Joint Injection/Aspiration Primary Site: right knee (Ultrasound-guided suprapatellar approach for intra- articular injection) Secondary Site: left shoulder (Ultrasound guided posterolateral access to subacromial bursa) Prep: site was prepped using sterile technique Injected: Kenalog (30 mg injected at each site), with 3 mL of (Ropivacaine 0.25% at each site), in the joint (Right knee) and in the subcromial space (Right shoulder) Procedure: The patient tolerated the procedure well Coding Details: Ultrasound images of the knee and shoulder injections were saved to the patient's record. - Large joint - Glenohumeral with ultrasound guidance Procedure code (CPT) selection complete Assessment & Plan Assessment & Plan (1) Right shoulder pain: Code(s): M25.511 - Pain in right shoulder Category: Medical (2) Right knee pain: Code(s): M25.561 - Pain in right knee Category: Medical Plan Patient is status post right knee intra-articular and right shoulder subacromial bursa injections. Patient tolerated procedure well and was discharged home in stable condition with discharge instructions. All questions were answered. We will follow-up via telephone or in clinic to assess response to therapy. A follow-up appointment was made during today's visit. Coding Level of Care Code Procedure Only Diagnoses Right shoulder pain M25.511 Right knee pain M25.561 CPT Codes Coding - 54035 Large joint: 03543 - Large joint ([id number]) Coding - Joint 8: 10651 - Glenohumeral with ultrasound guidance ([id number])
[2024-08-17 10:41] VITALS: BP 152/71; PULSE 100; RESP 16; O2SAT 96; BMI 17.5
== END 2024-08-17 11:05 | disposition home or self-care (01) ==
PROVIDERS: PCP Physician Assistant Medical; Visit Provider Internal Medicine
DX: M25.511 Pain in right shoulder (principal); M25.561 Pain in right knee
CPT/HCPCS: 20611

== ENCOUNTER → 2024-08-17 10:38 | Outpatient (BNVA) | payer MEDICARE, SELFPAY | PROVIDERS: PCP Physician Assistant Medical; Visit Provider Internal Medicine | DX: M25.561 Pain in right knee (principal) | CPT/HCPCS: 20611 ==

== ENCOUNTER 2025-04-21 11:04 | Outpatient (AMB) | payer MEDICARE, SELFPAY ==
--- NOTE | 2025-04-21 11:07 | MHC.OFFVIS ---
Vital Signs 04/21/25 11:09 Height 5 ft 11.5 in Weight 126 lb BMI 17.3 BP 112/58 L Blood Pressure Location Lt brachial Position Sitting Respiration 16 Pulse 66 Pulse Source Pulse Oximeter Intake Visit Reasons: Right Knee Pain Underwriting Intern Required: No Health Services Director: Health Services Director Present Accompanied by: Chivo Long Allergies No Known Allergies Allergy (Verified 04/21/25 11:11) Medication List - Last Reconciled 04/21/25 by Brittnee Kellogg LPN duloxetine 80 mg PO DAILY hydrocodone-acetaminophen 5-325 mg 1 tab PO QID PRN ibuprofen 800 mg PO TID HPI HPI Right Knee Pain: Details: History of Present Illness The patient is a 75-year-old male presenting with low back pain and knee pain. The low back pain has been persistent and was previously managed with an injection, which provided temporary relief. The pain is primarily located in the right hip area and exacerbated by walking. The patient also experiences right knee pain, which is described as a twitch or jerk when standing still. Previous interventions included an injection in August, which did not significantly alleviate the knee pain. The patient has a history of a left hip replacement, which was a challenging experience. He maintains an active lifestyle by walking daily to keep his muscles moving. Pain Description - Onset: Persistent low back pain and knee pain - Quality: Twitch or jerk in the knee when standing still - Location: Right hip area and right knee - Exacerbating factors: Walking exacerbates hip pain - Relieving factors: Previous injections provided temporary relief Physical Exam - Musculoskeletal: Positive SI joint compression test - Musculoskeletal: Positive SI joint thrust test - Musculoskeletal: Positive SI joint DELMY test Results Pain Management - Affect: Pain impacts daily activities, particularly walking - Analgesia: Previous injections provided temporary relief - Activities of Daily Living: Patient walks daily to maintain muscle movement Physical Exam Vital Signs: Last Vital Signs Pulse 66 04/21/25 11:09 Resp 16 04/21/25 11:09 BP 112/58 L 04/21/25 11:09 BMI result Body Mass Index 17.3 Office Procedures AMB Joint Injection/Aspiration Joint Injection/Aspiration Primary Site: right knee Injected: Kenalog (30 mg), with 3 mL of (Ropivacaine 0.5%) and in the joint Approach Used: medial parapatellar Procedure: The patient tolerated the procedure well Coding 52116 - Large joint Procedure code (CPT) selection complete Assessment & Plan Assessment & Plan (1) Sacroiliac joint pain: Code(s): M53.3 - Sacrococcygeal disorders, not elsewhere classified Category: Medical (2) Right knee pain: Code(s): M25.561 - Pain in right knee Category: Medical Plan Plan Patient was informed and verbally consented to the use of an ambient scribe for clinic note documentation during this visit. 1. Low Back Pain secondary to sacroiliac joint dysfunction - Plan to perform a diagnostic injection to the SI joint to assess for SI joint dysfunction. - If positive, follow up with a cortisone injection to the SI joint. 2. Right Knee Pain - Administered intraarticular Kenalog injection for knee pain management. Discussion Notes We discussed the plan to perform a Novocaine injection through the SI joint to assess for SI joint dysfunction, with a follow-up cortisone injection if the test is positive. The patient consented to the procedure, understanding the risks and benefits. Patient Instructions - Follow up with the clinic after the SI joint injection to assess effectiveness. - Continue daily walking to maintain muscle movement. Coding Level of Care Code Est Pt Level 4 (49232) Diagnoses Sacroiliac joint pain M53.3 Right knee pain M25.561 CPT Codes Coding - 14937 Large joint: 37948 - Large joint ([id number])
[2025-04-21 11:09] VITALS: BP 112/58; PULSE 66; RESP 16; BMI 17.3
== END 2025-04-21 11:41 | disposition home or self-care (01) ==
LOC: HO.PMC 11:05
PROVIDERS: PCP Physician Assistant Medical; Visit Provider Internal Medicine
DX: M53.3 Sacrococcygeal disorders, not elsewhere classified (principal); M25.561 Pain in right knee
CPT/HCPCS: 20610; 99214

== ENCOUNTER → 2025-04-21 11:04 | Outpatient (BNVA) | payer MEDICARE, SELFPAY | PROVIDERS: PCP Physician Assistant Medical; Visit Provider Internal Medicine | DX: M25.561 Pain in right knee (principal); M53.3 Sacrococcygeal disorders, not elsewhere classified | CPT/HCPCS: 20610; 99212; J2795; J3301 ==

== ENCOUNTER 2025-06-08 06:13 | Outpatient (REF) | payer MEDICARE, SELFPAY | END 2025-06-08 06:14 | disposition home or self-care (01) | LOC: CF 06:13 | PROVIDERS: Visit Provider Internal Medicine | DX: Z13.89 Encounter for screening for other disorder (principal) ==